=== PATIENT | male | born 1970 | race Caucasian/White ===

== ENCOUNTER 2017-04-08 17:24 | Emergency (ER) | payer SELFPAY ==
[2017-04-08] MEDS ORDERED: Ketorolac Tromethamine 60 MG/2 ML VIAL ONE (17:30)
[2017-04-08] MEDS ORDERED: Adacel (T-DAP) 0.5 ML VIAL ONE (17:30)
[2017-04-08] MEDS ORDERED: Lidocaine 1% w/Epinephrine 1:100K 30 ML VIAL ONE (17:37)
[2017-04-08] MEDS ORDERED: Ondansetron ODT 4 MG TAB ONE (17:42)
[2017-04-08] MEDS ORDERED: Acetaminophen/Codeine 30-300mg Tablet ONE (19:05)
[2017-04-08] MEDS ORDERED: Cephalexin 250 MG CAP ONE (19:06)
--- NOTE | 2017-04-08 22:46 | CT ---
CT OF THE BRAIN WITHOUT CONTRAST 04/08/17 A laceration is seen in the right frontal scalp with some air trapped within the depths of the lacer ation. The calvarium beneath it appears intact with no sign of fracture. Internally, there is no sig n of parenchymal bleeding or extra-axial hematoma. The ventricles are normal in size with no shift. There is no sign of stroke, mass, or edema. There is no air fluid level in the sphenoid sinus, thoug h there may be some very minor mucosal thickening in the ethmoid air cells bilaterally. IMPRESSION: 1. No acute intracranial findings. 2. Right frontal scalp laceration. POS: HOME
== END 2017-04-08 19:15 | disposition home or self-care (01) ==
LOC: BURERS 17:24
DX: S01.01XA Laceration without foreign body of scalp, initial encounter (principal); F41.9 Anxiety disorder, unspecified; F31.9 Bipolar disorder, unspecified; F43.10 Post-traumatic stress disorder, unspecified; F20.9 Schizophrenia, unspecified; F29 Unspecified psychosis not due to a substance or known physiological condition; Z23 Encounter for immunization; F17.210 Nicotine dependence, cigarettes, uncomplicated; W22.8XXA Striking against or struck by other objects, initial encounter
CPT/HCPCS: 12001; 12034; 70450; 90471; 90715; 96372; J1885; J2001; Q0162